=== PATIENT | male | born 1950 | race Caucasian/White ===

== ENCOUNTER 2021-02-03 21:41 | Inpatient (IN) | payer OTHER ==
[~2021-02-03] VITALS: Ht 180.3 cm; Wt 82.6 kg
[2021-02-03 23:25] LABS: HEMOGLOBIN 12.7 gm/dl (14.0-17.5); RED BLOOD COUNT 5.1 M/UL (4.20-5.50); WHITE BLOOD COUNT 19.5 K/UL (4.5-11.0)
[2021-02-03 23:40] LABS: BUN/CREATININE RATIO 10 (0-10)
[2021-02-04] MEDS ORDERED: PERCOCET 10-321 EACH PO (06:30)
[2021-02-04] MEDS ORDERED: AMLODIPINE BES2.5 MG PO (06:31)
[2021-02-04] MEDS ORDERED: ZANAFLEX4 MG PO (06:32)
[2021-02-04] MEDS ORDERED: VITAMIN D21250 MCG PO (06:32)
[2021-02-04] MEDS ORDERED: DOXYCYCLINE HY100 MG PO (06:33)
[2021-02-04] MEDS ORDERED: AMITRIPTYLINE H75 MG PO (06:33)
[2021-02-04] MEDS ORDERED: VENLAFAXINE HCL75 MG PO (06:34)
[2021-02-04] MEDS ORDERED: VALIUM 2 MG TAB2 MG PO (06:35)
[2021-02-04] MEDS ORDERED: IBU800 MG PO (06:36)
--- NOTE | 2021-02-05 09:30 | NUR ---
PT AGGITATED/UPSET MAKING THREATENING REMARKS, SECURITY AND MD CALLED AT THIS TIME.
[2021-02-05 09:32] LABS: HEMOGLOBIN 11.3 gm/dl (14.0-17.5); RED BLOOD COUNT 4.77 M/UL (4.20-5.50)
[2021-02-05 09:33] LABS: WHITE BLOOD COUNT 25.1 K/UL (4.5-11.0)
--- NOTE | 2021-02-05 09:45 | NUR ---
DR HEMPHILL AT BEDSIDE
[2021-02-05 09:57] LABS: BUN/CREATININE RATIO 12 (0-10)
--- NOTE | 2021-02-05 10:15 | NUR ---
SECUTITY AND NURSES PUT PT BACK IN BED, RESTRAINTS APPLIED, ATIVAN 0.5MG IM GIVEN, WILL CONTINUE TO MONITOR
--- NOTE | 2021-02-05 11:30 | NUR ---
RESTRAINTS OFF AT THIS TIME, PT SLEEPING/CALM
[2021-02-06 07:17] LABS: HEMOGLOBIN 11.1 gm/dl (14.0-17.5)
[2021-02-06 07:23] LABS: RED BLOOD COUNT 4.51 M/UL (4.20-5.50); WHITE BLOOD COUNT 18.6 K/UL (4.5-11.0)
--- NOTE | 2021-02-06 12:00 | NUR ---
PLACED PT O2 SENSOR ON, PT O2 SAT WAS 78 ON ROOM AIR, PLACED PT ON 3L NC AND O2 SAT IS NOW 96%
[2021-02-06] MEDS ORDERED: ASPIRIN EC81 MG PO (16:58)
[2021-02-06] MEDS ORDERED: HUMIBID LA TAB600 MG PO (16:58)
[2021-02-06] MEDS ORDERED: SPIRIVA HANDIH18 MCG INH (17:16)
[2021-02-06] MEDS ORDERED: ELIQUIS5 MG PO (17:16)
[2021-02-06] MEDS ORDERED: LIPITOR40 MG PO (17:16)
[2021-02-06] MEDS ORDERED: COZAAR 50MG TAB50 MG PO (17:16)
[2021-02-06] MEDS ORDERED: IPRAT-ALBUT 0.5-3 ML NEB (17:16)
[2021-02-06] MEDS ORDERED: AUGMENTIN 875-1 EACH PO (17:16)
[2021-02-06] MEDS ORDERED: ELIQUIS 5 MG TAB5 MG PO (17:16)
[2021-02-06] MEDS ORDERED: LASIX TAB 20 MG20 MG PO (17:51)
[2021-02-06] MEDS ORDERED: SYMBICORT 160-1 INHA INH (18:16)
[2021-02-07 10:14] LABS: PROTEIN S, FREE 72 % (57-157); PROTEIN S, TOTAL 51 % (60-150)
[2021-02-07 12:14] LABS: PROTEIN C-FUNCTIONAL 40 % (73-180); PROTEIN S-FUNCTIONAL 48 % (63-140)
[2021-02-08 20:12] LABS: 1 HR INCUB PT 1:1NP 12.2 sec (9.1-12.0); DRVVT 43.7 sec (0.0-47.0); LUPUS REFLEX INTERPRETATION Comment: (.); PT 16.5 sec (9.1-12.0); PT 1:1NP 11.9 sec (9.1-12.0); PTT-LA 47.1 sec (0.0-51.9); THROMBIN TIME 19.9 sec (0.0-23.0)
== END 2021-02-06 19:14 | disposition home or self-care (01) | DRG 175 ==
LOC: ER1 21:41 → PROG CARE 02-04 05:11 → CDU 02-04 05:11 → PROG CARE 02-04 06:29
PROVIDERS: Internal Medicine; Pain Medicine Interventional Pain Medicine; ADMIT Internal Medicine
DX: I26.99 Other pulmonary embolism without acute cor pulmonale (principal); J96.01 Acute respiratory failure with hypoxia; J18.9 Pneumonia, unspecified organism; G93.41 Metabolic encephalopathy; I50.22 Chronic systolic (congestive) heart failure; R18.8 Other ascites; E87.1 Hypo-osmolality and hyponatremia; C95.90 Leukemia, unspecified not having achieved remission; I11.0 Hypertensive heart disease with heart failure; K74.60 Unspecified cirrhosis of liver; R16.1 Splenomegaly, not elsewhere classified; I71.9 Aortic aneurysm of unspecified site, without rupture; F17.200 Nicotine dependence, unspecified, uncomplicated; R91.1 Solitary pulmonary nodule; F43.10 Post-traumatic stress disorder, unspecified; D45 Polycythemia vera; Z20.822 Contact with and (suspected) exposure to COVID-19; Z85.820 Personal history of malignant melanoma of skin; Z82.49 Family history of ischemic heart disease and other diseases of the circulatory system
CPT/HCPCS: ECHO; 0240U; 36415; 36600; 70450; 71046; 80053; 80061; 81001; 81240; 81241; 82140; 82550; 82553; 82803; 83036; 83605; 83690; 83735; 83874; 83880; 84439; 84443; 84484; 84550; 85025; 85301; 85302; 85305; 85379; 85611; 85730; 87040; 93005; 93306; 93970; 93971; 94640; 94664; 94760; 99285; J0692; J1644; J1940; J2060; J2405; Q9967